=== PATIENT | female | born 1970 | race Caucasian/White ===

== ENCOUNTER → 2016-06-25 08:12 | Outpatient (CLI) | payer BC | END | disposition home or self-care (01) | LOC: D.CT 08:12 | DX: R31.21 Asymptomatic microscopic hematuria (principal) ==

== ENCOUNTER 2016-07-23 00:01 | Outpatient (CLI) | payer BC | END 2016-07-23 23:59 | disposition home or self-care (01) | LOC: D.US 00:01 | DX: R31.29 Other microscopic hematuria (principal) ==